=== PATIENT | female | born 1980 | race Caucasian/White ===

== ENCOUNTER 2023-07-01 20:37 | Emergency (ER) | payer MEDICAID, SELFPAY ==
--- NOTE | 2023-07-01 20:40 | XRR_ITS ---
PROCEDURE INFORMATION: Exam: XR Chest Exam date and time: 07/01/2023 10:15 PM Age: 42 years old Clinical indication: Pain; Chest pressure; Additional info: Cp TECHNIQUE: Imaging protocol: Radiologic exam of the chest. Views: 1 view. COMPARISON: No relevant prior studies available. FINDINGS: Lungs: Right lower lobe atelectasis versus minimal infiltrate. Pleural spaces: Unremarkable. No pleural effusion. No pneumothorax. Heart/Mediastinum: Unremarkable. No cardiomegaly. Bones/joints: Unremarkable. XR/XR chest 1V portable [id number] IMPRESSION: Right lower lobe atelectasis versus minimal infiltrate.
[2023-07-01 21:08] VITALS: BP 145/88; PULSE 100; RESP 16; TEMP 36.6; O2SAT 93; BMI 34.2
[2023-07-01 21:35] VITALS: BP 167/98; PULSE 99; O2SAT 99
--- NOTE | 2023-07-01 21:46 | USR_ITS ---
PROCEDURE INFORMATION: Exam: US Abdomen, Limited; Right Upper Quadrant Exam date and time: 07/01/2023 9:52 PM Age: 42 years old Clinical indication: Abdominal pain; Generalized; Additional info: Ruq pain TECHNIQUE: Imaging protocol: Real time ultrasound of the abdomen with image documentation. Limited exam focused on the right upper quadrant. COMPARISON: No relevant prior studies available. FINDINGS: Liver: 13 mm hepatic cyst. Gallbladder: Cholelithiasis with borderline gallbladder wall thickening at 3.4 mm, findings are somewhat equivocal for cholecystitis, consider further evaluation with nuclear medicine HIDA scan if concern for cholecystitis remains. Biliary ducts: Normal. No stones. No dilation. Pancreas: Visualized pancreas is unremarkable. Right kidney: Normal. No mass. No hydronephrosis. US/US gall bladder [id number] IMPRESSION: 1. Cholelithiasis with borderline gallbladder wall thickening at 3.4 mm, findings are somewhat equivocal for cholecystitis, consider further evaluation with nuclear medicine HIDA scan if concern for cholecystitis remains. 2. 13 mm hepatic cyst.
[2023-07-01 21:59] LABS: Basophils % 0.4 %; Eosinophils # 0.1 10^3/uL (0.0-0.8); Eosinophils % 0.6 %; Lymphocytes # 1.7 10^3/uL (0.8-4.8); Lymphocytes % 15.4 %; Mean Corpuscular HGB Conc 31.1 g/dL (30.0-36.0); Mean Corpuscular Hemoglobin 27.7 pg (28.0-34.0); Mean Corpuscular Volume 88.9 fl (81-99); Mean Platelet Volume 9.9 fL (7.4-10.4); Monocytes # 0.7 10^3/uL (0.2-0.9); Monocytes % 6.1 %; Neutrophils # 8.65 10^3/uL (1.8-7.7); Neutrophils % 77.1 %; Nucleated Red Blood Cells % 0 %; Platelet Count 264 10^3/cmm (130-400); Red Blood Count 5.06 10^6/uL (4.1-5.3); Red Cell Distribution Width 14.6 % (12.1-15.1); White Blood Count 11.2 10^3/uL (4.0-10.0)
[2023-07-01 22:00] VITALS: BP 131/76; PULSE 88; RESP 16; O2SAT 94
--- NOTE | 2023-07-01 22:05 | W.ED.ABDPA2 ---
HPI - Abdominal Pain General: Chief Complaint: Abdominal Pain Stated Complaint: abdomen pain, chest discomfort Time Seen by Provider: 07/01/23 21:39 Source: patient Mode of arrival: ambulatory Limitations: no limitations History of Present Illness: 42-year-old female who states that she has been having abdominal pain it started roughly 2 hours ago states it started in her abdomen had a burning sensation going up to her chest. States she has been dealing with this for some time states she is on Prilosec for 2 weeks that seem to improve but she has not been taking it she states the pain is a 5 out of 10 currently no vomiting no diarrhea denies any shortness of breath. Associated Symptoms: Denies chills, diarrhea, fever(s), nausea and vomiting Related Data: Date of Last Menstrual Period: 06/25/23 Review of Systems Const: Denies: fever(s) or chills ENMT: Denies: throat pain or dental pain Card: Reports: chest pain Resp: Denies: dyspnea GI: Reports: abdominal pain; Denies: nausea, vomiting or diarrhea Musc: Denies: neck pain or back pain Skin/Breast: Denies: rash Neuro: Denies: headache(s) [facility] ED Female Reproductive History: Date of last menstrual period: 06/25/23 Physical Exam Const: COMMON NORMALS: no acute distress, patient oriented x3 and healthy appearing HENMT: COMMON NORMALS: normocephalic and atraumatic HEAD & SCALP: normocephalic and atraumatic Neck/C-Spine: COMMON NORMALS: full ROM and supple Chest: COMMONS NORMALS: normal inspection of the chest Resp: COMMON NORMALS: normal respiratory effort Cardio: COMMON NORMALS: regular rate, regular rhythm and No murmurs present (Cardio) RATE: regular rate RHYTHM: regular rhythm GI: COMMON NORMALS: Normal to inspection, nondistended, normoactive bowel sounds present, Soft to palpation, non-tender and no masses PALPATION: Yes Soft to palpation Extremity: COMMON NORMALS: normal to inspection and full ROM Neuro: COMMON NORMALS: patient oriented x3, moves all extremities and no focal motor deficits Psych: COMMON NORMALS: mental status grossly normal, Normal thought process present and cooperative THOUGHT PROCESS: Normal thought process present Skin: COMMON NORMALS: no rashes or lesions noted and no wounds GENERAL SKIN EXAM: no rashes or lesions noted Course Vital Signs: Vital signs: Vital Signs Temperature 97.9 F 07/01/23 21:08 Pulse Rate 100 07/01/23 21:08 Respiratory Rate 16 07/01/23 21:08 Blood Pressure 145/88 07/01/23 21:08 Pulse Oximetry 93 07/01/23 21:08 Oxygen Delivery Me thod Room Air 07/01/23 21:08 MDM - Abdominal Pain Medical Decision Making Patient presents with abdominal pain likely from biliary colic ultrasound does show cholelithiasis she had no fever her pain is much improved here we will put her on Augmentin along with pain meds we will get her follow-up with surgery if she develops a fever or worsens she is to return she understands agrees to plan. Medical Records I reviewed the patient's medical records. Lab Data I reviewed the patient's lab results. 07/01/23 21:50 07/01/23 21:50 Labs/Radiology: Radiology Impressions Chest X-Ray 07/01/23 20:40 IMPRESSION: Right lower lobe atelectasis versus minimal infiltrate. Gallbladder Ultrasound 07/01/23 21:46 IMPRESSION: 1. Cholelithiasis with borderline gallbladder wall thickening at 3.4 mm, findings are somewhat equivocal for cholecystitis, consider further evaluation with nuclear medicine HIDA scan if concern for cholecystitis remains. 2. 13 mm hepatic cyst. Laboratory Results WBC 11.2 10^3/uL (4.0-10.0) H 07/01/23 21:50 RBC 5.06 10^6/uL (4.1-5.3) 07/01/23 21:50 Hgb 14.0 g/dL (11.5-15.3) 07/01/23 21:50 Hct 45.0 % (37.0-47.0) 07/01/23 21:50 MCV 88.9 fl (81-99) 07/01/23 21:50 MCH 27.7 pg (28.0-34.0) L 07/01/23 21:50 MCHC 31.1 g/dL (30.0-36.0) 07/01/23 21:50 RDW 14.6 % (12.1-15.1) 07/01/23 21:50 Plt Count 264 10^3/cmm (130-400) 07/01/23 21:50 MPV 9.9 fL (7.4-10.4) 07/01/23 21:50 Neut % (Auto) 77.1 % 07/01/23 21:50 Lymph % (Auto) 15.4 % 07/01/23 21:50 Foard % (Auto) 6.1 % 07/01/23 21:50 Eos % (Auto) 0.6 % 07/01/23 21:50 Baso % (Auto) 0.4 % 07/01/23 21:50 Neut # (Auto) 8.65 10^3/uL (1.8-7.7) H 07/01/23 21:50 Lymph # (Auto) 1.7 10^3/uL (0.8-4.8) 07/01/23 21:50 Foard # (Auto) 0.7 10^3/uL (0.2-0.9) 07/01/23 21:50 Eos # (Auto) 0.1 10^3/uL (0.0-0.8) 07/01/23 21:50 Baso # (Auto) 0.0 10^3/uL (0.0-0.1) 07/01/23 21:50 Nucleated RBC % (auto) 0 % 07/01/23 21:50 Nucleated RBCs # 0.0 /100WBC 07/01/23 21:50 Sodium 141 mmol/L (136-145) 07/01/23 21:50 Potassium 3.7 mmol/L (3.5-5.1) 07/01/23 21:50 Chloride 102 mmol/L (98-107) 07/01/23 21:50 Carbon Dioxide 28 mmol/L (22-29) 07/01/23 21:50 Anion Gap 14.7 (5-19) 07/01/23 21:50 BUN 12 mg/dL (6-20) 07/01/23 21:50 Creatinine 0.5 mg/dL (0.5-0.9) 07/01/23 21:50 GFR Calculation 134.7 mL/min (90-130) H 07/01/23 21:50 Glucose 129 mg/dL (65-115) H 07/01/23 21:50 Calculated Osmolality 293 mOsm/kg (285-295) 07/01/23 21:50 Calcium 10.0 mg/dL (8.5-10.5) 07/01/23 21:50 Total Bilirubin 0.4 mg/dL (0.15-1.2) 07/01/23 21:50 AST 107 U/L (0-32) H 07/01/23 21:50 ALT 67 U/L (0-33) H 07/01/23 21:50 Alkaline Phosphatase 198 U/L (35-105) H 07/01/23 21:50 Troponin T Baseline 32 ng/L (0-10) H 07/01/23 21:50 Total Protein 6.8 g/dL (6.6-8.7) 07/01/23 21:50 Albumin 4.2 g/dL (3.5-5.2) 07/01/23 21:50 Globulin 2.6 g/dL (1.3-4.6) 07/01/23 21:50 Lipase 70 U/L (13-60) H 07/01/23 21:50 HCG, Qual Negative (Negative) 07/01/23 21:50 Discharge Plan Discharge Patient Disposition: Home Clinical Impression: Cholelithiasis Condition: Stable Prescriptions: New hydrocodone-acetaminophen 5-325 mg tablet 1 tab PO Q6H PRN (Reason: pain) Qty: 14 0RF ondansetron 4 mg tablet,disintegrating 4 mg PO Q6H PRN (Reason: nausea and vomiting) Qty: 14 0RF Augmentin 500-125 mg tablet 1 tab PO BID Qty: 14 0RF Discharge Orders: Discharge ED (Routine); Ordered 07/01/23 Ordered By: Latosha Orona Referrals: Brendon Mike DO [Physician] - 1-3 days Discharge Diet: Advance as tolerated Discharge Activity: Resume usual activity Patient Instructions: Biliary Colic (ED), Gallstones (ED), Opioid Safety Coding Level of Care Code ED End Finder Forming Department for Catherine Lopez
[2023-07-01 22:14] LABS: HCG, Serum Qual Negative (Negative)
[2023-07-01 22:19] LABS: Alanine Aminotransferase 67 U/L (0-33); Albumin Level 4.2 g/dL (3.5-5.2); Alkaline Phosphatase 198 U/L (35-105); Anion Gap 14.7 (5-19); Aspartate Amino Transferase 107 U/L (0-32); Blood Urea Nitrogen 12 mg/dL (6-20); Carbon Dioxide 28 mmol/L (22-29); Chloride 102 mmol/L (98-107); Globulin 2.6 g/dL (1.3-4.6); Glomerular Filtration Rate 134.7 mL/min (90-130); Glucose 129 mg/dL (65-115); Lipase 70 U/L (13-60); Osmolality Calculated 293 mOsm/kg (285-295); Potassium 3.7 mmol/L (3.5-5.1); Sodium 141 mmol/L (136-145); Total Bilirubin 0.4 mg/dL (0.15-1.2); Total Protein 6.8 g/dL (6.6-8.7); Troponin(5th) Baseline 32 ng/L (0-10)
--- NOTE | 2023-07-01 22:40 | ECG_ITS ---
[facility] Test Date: 2023-07-01 Pat Name: Lizet Nicholas Department: Room: Gender: Female Telephone Quotation Clerk: : 1980 Requested By: Latosha Orona Order Number: [id number] Cayla MD: Chet Allen M.D. Measurements Intervals [place] Rate: 88 P: 18 NE: 168 QRS: -51 QRSD: 119 T: 101 QT: 422 QTc: 513 Interpretive Statements SINUS RHYTHM LEFT ANTERIOR FASCICULAR BLOCK [QRS AXIS <= -45, QR IN I, RS IN II] LEFT VENTRICULAR HYPERTROPHY AND ST-T CHANGE [VOLTAGE CRITERIA PLUS ST/T ABNORMALITY] POSSIBLE ANTERIOR MYOCARDIAL INFARCTION , OF INDETERMINATE AGE [30 ms Q WAVE IN V3/V4, OR R < 0.2 mV IN V4] No previous ECG available for comparison Electronically Signed On 07-02-2023 10:23:41 CDT by Chet Allen M.D. [id number]
[2023-07-01] MEDS: ondansetron 2 mg/ML SDV 2 mL 4 MG IVP (22:44)
[2023-07-01] MEDS: morphine 4 mg/mL SDV 1 mL IVP (22:44)
[2023-07-01 23:03] VITALS: BP 134/97; PULSE 90; RESP 17
--- NOTE | 2023-07-02 09:57 | DCPLANNER ---
Addendum entered by Sheron Galvan 07/10/23 15:00: Patient did attend appointment scheduled with general surgery Addendum entered by Sheron Galvan 07/04/23 11:25: Patient has a follow up appointment scheduled for Sunday, July 09, 2023 at 10:[address] Fairchild at general surgery. Original Note: care manager cna had message to schedule a follow up appointment for patient with general surgery. care manager cna sent patients information to the front office staff at general surgery. Patients information will be printed and reviewed. Clinic will call patient with appointment information.
--- NOTE | 2023-07-03 13:33 | DCPLANNER ---
manager of transportation called patient due to no primary care physician - spoke with patients , they declined at this time, will call and schedule something.
== END 2023-07-01 23:08 | disposition home or self-care (01) ==
PROVIDERS: Emergency Provider Emergency Medicine
DX: K80.20 Calculus of gallbladder without cholecystitis without obstruction (principal)
CPT/HCPCS: 36415; 71045; 76705; 80053; 83690; 84484; 84703; 85025; 93005; 96374; 96375; 99285; J2270; J2405

== ENCOUNTER 2023-08-01 08:35 | Day surgery (SDC) | payer MEDICAID, SELFPAY ==
[2023-07-27 10:27] VITALS: BMI 33.5
--- NOTE | 2023-07-27 10:49 | P.ANESASSM_ITS ---
Pre-Anesthetic Assessment Height/Weight: Height 1.52 m Weight 78.018 kg Operation Date: 08/01/23 11:10 Proposed Procedures p Laparoscopic Cholecystectomy 87760,K82.9(Not Applicable) - Jan Benton MD Familial anesthetic complications: myotonic dystrophy Social No alcohol and No tobacco Exam alert, oriented x 3, clear to auscultation bilaterally and regular rate & rhythm Airway Mallampati: Class II Dentition: full CV/HEM heart loop recorder in place 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 - AVOID succinylcholine and other NMBs, BZDs, Barbiturates, Anticholinesterases, and opioids when possible Anesthetic Plan ASA status: 3 Anesthesia: General Risk of > 500 ml blood loss (7ml/kg in children): No Medications/Allergies Home Medications Medication Instructions Recorded Confirmed Last Taken Type hydrocodone 5 mg-acetaminophen 325 1 tab PO Q6H PRN pain #14 tabs 07/01/23 07/27/23 Unknown Rx mg tablet ondansetron 4 mg disintegrating 4 mg PO Q6H PRN nausea and 07/01/23 07/27/23 Unknown Rx tablet vomiting #14 tabs melatonin 5 mg tablet 5 mg PO DAILY 07/27/23 07/27/23 Unknown History multivitamin 1 tab PO DAILY 07/27/23 07/27/23 Unknown History Allergies Allergy/AdvReac Type Severity Reaction Status Date / Time cefaclor [From [facility]] Allergy ALGY-Hives Verified 07/27/23 10:20 red dye Allergy Unknown Verified 07/27/23 10:20 PFSH Anesthesia Female Reproductive History Date of last menstrual period: 06/26/23 Data Anesthesia Cardiac Studies: No Data to Display
[2023-08-01] VITALS (18 sets, daily range): BP systolic 129–171; BP diastolic 80–100; PULSE 85–107; RESP 14–17; TEMP 36.6–36.7; O2SAT 90–100
--- NOTE | 2023-08-01 09:33 | W.PM.OPSUD ---
Surgery/Procedure H&P Update DATE OF PROCEDURE: August 01, 2023 DATE H&P PERFORMED: 07/09/23 H&P UPDATE INFORMATION: I have reviewed H&P completed within last 30 days, I have examined patient prior to procedure, No changes to prior documentation and H&P is in [facility] EMR on date indicated PLANNED PROCEDURE: Operation Date: 08/01/23 10:30 Proposed Procedures p Laparoscopic Cholecystectomy 36553,K82.9(Not Applicable) - Jan Benton MD
[2023-08-01] MEDS: sodium chloride 0.9% 1,000 ML 30 ML IV (10:54)
[2023-08-01] MEDS: HYDROmorphone 1 mg/mL INJ 1 mL 0.5 MG IVP ×3 (12:38→15:59)
[2023-08-01] MEDS: ceFAZolin 2,000 MG in sodium chloride 0.9% (plus) 50 ML 100 MG IV (13:05)
--- NOTE | 2023-08-01 13:15 | ANES.PAUD2 ---
Pre-Anesthetic Update Pre-Anesthetic Assessment: Date of Surgery/Procedure: 08/01/23 Proposed Procedure: Operation Date: 08/01/23 10:30 Proposed Procedures p Laparoscopic Cholecystectomy 58700,K82.9(Not Applicable) - Jan Benton MD Any changes to Pre-Anesthetic Assessment?: No Last Intake: Intake Last Liquid Date 07/31/23 Last Liquid Time 23:45 Last Solid Date 07/31/23 Last Solid Time 18:00 Vitals: Temperature 97.8 F 08/01/23 09:50 Temperature Source Temporal Artery S can 08/01/23 09:50 Pulse Rate 90 08/01/23 09:50 Respiratory Rate 16 08/01/23 12:38 Respiratory Effort Spontaneous 08/01/23 12:38 Respiratory Depth Normal 08/01/23 12:38 Respiratory Patter n Normal 08/01/23 12:38 Blood Pressure 131/83 08/01/23 09:50 Blood Pressure Virgie n 99 08/01/23 09:50 Pulse Oximetry 98 08/01/23 09:50 Oxygen Delivery Me thod Room Air 08/01/23 09:50 Exam: Pre-Anes Outpt Exam: alert, oriented x 3, clear to auscultation bilaterally and regular rate & rhythm Cardiac Studies: No Data to Display
[2023-08-01 13:20] LABS: OR HCG Qualitative Urine Negative (Negative)
[2023-08-01] MEDS: lidocaine-epi 1% 20 mL INJ INJECTION (13:42)
[2023-08-01] MEDS: BUPivacaine 0.25% INJ 30 mL INJECTION (13:42)
--- NOTE | 2023-08-01 14:33 | PM.OP ---
Operative Report Date of procedure: August 01, 2023 Pre-op diagnosis: Symptomatic cholelithiasis Post-op diagnosis: Same Procedure done: Laparoscopic cholecystectomy Specimens removed/disposition: Gallbladder Surgeon: Jan Benton MD Estimated blood loss: 5 Complications: None Findings: Intrahepatic gallbladder filled with stones, multiple branches from the cystic artery. Brief History: Is a 42-year-old female who has history of muscular dystrophy and presented to my clinic for evaluation for possible lap lexie for symptomatic cholelithiasis. After discussion of the risk benefits of the operation we decided to proceed. Procedure: Patient was brought into the OR, placed in the supine position, compression stockings were placed. General esthesia was given. The abdomen was prepped and draped in the usual sterile fashion, timeout was conducted. We entered the abdomen via an infraumbilical incision using open technique, a Paez trocar was placed and fixed to the fascia with 0 Vicryl. Additional trocars were placed in the epigastric right upper quadrant and right flank regions. The gallbladder was identified and noted to be intrahepatic, the gallbladder fundus was retracted cephalad and the infundibulum was retracted in a downward and lateral direction to expose the hepatocystic triangle. The peritoneum anterior to hepatocystic triangle was opened with electrocautery, this opening was carried on both sides of the gallbladder to the liver edge and then on the sides of the gallbladder laterally to release her from the liver allowing better visualization. Careful excision was done with [place], Endo Kitner and L-hook until critical view of safety was achieved. The lower third of the gallbladder was also lifted from the cystic plate. The cystic duct and artery were clipped and transected, the gallbladder was removed from the liver bed using an L-hook. During removal of the gallbladder a small perforation in the gallbladder was made, therefore we aspirated bile and irrigated cavity. Hemostasis was verified. The specimen was retrieved through the umbilical trocar site. The umbilical trocar site was then closed using #0 Vicryl using a Burak-Nicky suture passer under direct visualization. The epigastric trocar was removed under visualization and the other 2 trocars were used to evacuate the pneumoperitoneum and then removed. The wounds were closed using 4-0Monocryl for the skin and Dermabond was applied. At the end of the procedure all counts were correct. The patient was transferred to the PACU in stable condition after being extubated.
[2023-08-01] MEDS: fentaNYL 50 mcg/mL INJ 2mL IVP ×2 (15:05→15:30)
--- NOTE | 2023-08-01 16:43 | ANE.PACU2 ---
Inpatient post-anesthesia follow up: Airway intact: Yes Vital signs: Temperature 98.1 F Pulse Rate 85 Respiratory Rate 16 Blood Pressure 129/98 Pulse Oximetry 100 Oxygen Delivery Me thod Simple Mask Oxygen Flow Rate 6 Fraction of Inspir ed Oxygen Hydration adequate: Yes Nausea and vomiting: No Pain level: 4 Mental status: Baseline Additional Comments: Tolerated GA well, difficult pain control.
[2023-08-01] MEDS: oxyCODONE-APAP 5-325 mg Tablet 1 TAB PO (16:58)
== END 2023-08-01 17:40 | disposition home or self-care (01) ==
PROVIDERS: Anesthesiology; PCP Family Medicine; Visit Provider Surgery
PROC: 0FT44ZZ Resection of Gallbladder, Percutaneous Endoscopic Approach (ICD-10-PCS; CPT 47562; principal; 2023-08-01 10:20)
DX: K80.10 Calculus of gallbladder with chronic cholecystitis without obstruction (principal)
CPT/HCPCS: 47562; 81025; 84703; 88304; J0131; J0690; J1100; J1170; J2405; J2704; J3010; J3490; J7030